=== PATIENT | male | born 1950 | race Caucasian/White ===

== ENCOUNTER → 2021-02-24 | Outpatient (CLI) | payer MEDICARE ==
--- NOTE | 2021-02-24 11:41 | CT ---
EXAMINATION TYPE: CT sinus wo con DATE OF EXAM: 02/24/2021 COMPARISON: NONE HISTORY: Sinusitis per order. Congestion and facial pain. CT DLP: 649.20 mGycm. Automated Exposure Control for Dose Reduction was Utilized. TECHNIQUE: CT scan of the sinuses is performed without contrast, axial images are obtained, coronal r eformatted images are also reviewed. FINDINGS: Mild mucosal thickening inferiorly in the bilateral maxillary sinuses. Additional 2.0 cm mu cous retention cyst or polyp in the anterior inferior right maxillary sinus axial image 8. Remainder of the paranasal sinuses are clear without abnormal opacification The ostiomeatal complex is patent b ilaterally on the coronal images. There is S-shaped nasal septal deviation axial image 20 and coronal image 29 noted Visualized portion of mastoid air cells show no abnormal opacification. The globes are intact bilate rally. Visualized portion of brain parenchyma shows mild to moderate diffuse cerebral atrophy with p rominent CSF greatest over the bilateral frontal lobes suspicious for chronic subdural hygromas or as ymmetric increased bilateral frontal lobe atrophy. Correlate clinically and with outside CT brain ada dy if available. IMPRESSION: Chronic maxillary sinus disease. No acute sinusitis.
== END | disposition home or self-care (01) ==
LOC: RADCTMAIN 11:08
PROVIDERS: ATTEND Internal Medicine
DX: J32.0 Chronic maxillary sinusitis (principal)
CPT/HCPCS: 70486

== ENCOUNTER → 2021-03-17 | Outpatient (CLI) | payer MEDICARE ==
--- NOTE | 2021-03-17 12:46 | US ---
EXAMINATION TYPE: US kidneys/renal and bladder DATE OF EXAM: 03/17/2021 COMPARISON: NONE CLINICAL HISTORY: CKD N18.9. EXAM MEASUREMENTS: Right Kidney: 11.0x5.9x4.7 cm Left Kidney: 10.2x5.7x4.9 cm Right Kidney: Small inf cyst, 0.5x0.3x0.4cm Left Kidney: Inf lobulated cyst 2.7x3.5x2.2cm Bladder: wnl Bilateral Jets seen: Yes IMPRESSION: 1. Small bilateral renal cysts
== END | disposition home or self-care (01) ==
LOC: RADUSWWP 11:58
PROVIDERS: ATTEND Internal Medicine
DX: N28.1 Cyst of kidney, acquired (principal)
CPT/HCPCS: 76770

== ENCOUNTER 2022-06-24 10:17 | Day surgery (SDC) | payer MEDICARE ==
[2022-06-22 11:57] VITALS: BMI 30.9
[~2022-06-24 10:17] MED LIST: LACTATED RINGERS 1,000 ML IV SCH
[2022-06-24 11:34] VITALS: TEMP 97
[2022-06-24] MEDS ORDERED: LIDOCAINE 2% INJ 20 MG/ML (2 ML VIAL) ONE (12:37)
[2022-06-24] MEDS ORDERED: PROPOFOL 10 MG/ML 20 ML VIAL IV ONE (12:37)
--- NOTE | 2022-06-24 12:47 | P.PCN ---
Date of Procedure: 06/24/22 Procedure(s) Performed: BRIEF HISTORY: Patient is a 72-year-old, pleasant, white male scheduled for an upper endoscopy as a part of evaluation of intermittent dysphagia to solids for the last 6 months duration.. PROCEDURE PERFORMED: Esophagogastroduodenoscopy with dilation. PREOPERATIVE DIAGNOSIS: Intermittent dysphagia to solids of 6 months duration. IV sedation per anesthesia. PROCEDURE: After informed consent was obtained, the patient was brought into the endoscopy unit. IV sedation was administered by Anesthesia under continuous monitoring. Initially the Olympus GIF-140 video endoscope was inserted into the mouth. Esophagus intubated without any difficulty. It was gradually advanced into the stomach and duodenum and carefully examined. The bulb and the second part of the duodenum appeared normal. The scope at this time was withdrawn to the stomach, adequately insufflated with air, and upon careful examination, mucosa of the antrum, body, cardia and the fundus appeared normal. The scope was then withdrawn into the esophagus. Small hiatal hernia noted. The GE junction was located at 39 cm from the incisors. The widely patent distal esophageal Schatzki's ring identified that was dilated using 15-18 mm TTS balloon in a sequential fashion for 60 seconds. The rest of the esophagus appeared normal. There were no erosions or ulcerations seen and the patient tolerated the procedure well. IMPRESSION: 1. Widely patent distal esophageal Schatzki's ring status post balloon dilation using 15-18 mm TTS balloon . 2.. Small hiatal hernia RECOMMENDATIONS: The findings of this examination were discussed with the patient as well as his family. He was advised to follow up in office as needed.
[2022-06-24 13:16] VITALS: BP 162/80; PULSE 75; RESP 16
== END 2022-06-24 13:44 | disposition home or self-care (01) ==
LOC: ORWHC2ENDO 10:17
PROVIDERS: ATTEND Internal Medicine Gastroenterology
DX: K22.2 Esophageal obstruction (principal); K44.9 Diaphragmatic hernia without obstruction or gangrene; E78.5 Hyperlipidemia, unspecified; J45.909 Unspecified asthma, uncomplicated; N28.9 Disorder of kidney and ureter, unspecified; N40.0 Benign prostatic hyperplasia without lower urinary tract symptoms; Z79.02 Long term (current) use of antithrombotics/antiplatelets; Z79.83 Long term (current) use of bisphosphonates; Z79.899 Other long term (current) drug therapy; Z88.1 Allergy status to other antibiotic agents
CPT/HCPCS: 43249; J2704; J2001; C1726

== ENCOUNTER 2022-09-01 13:41 | Emergency (ER) | payer MEDICARE ==
[2022-09-01 13:46] VITALS: RESP 16
[2022-09-01 15:08] VITALS: BP 191/84; PULSE 56; TEMP 97.8
[2022-09-01] MEDS ORDERED: KETOROLAC 15 MG/ML 1 ML VIAL IM STA (15:24)
[2022-09-01] MEDS ORDERED: LIDOCAINE 5% PATCH TOPICAL SCH (15:30)
--- NOTE | 2022-09-01 16:05 | XR ---
EXAMINATION TYPE: XR pelvis AP view DATE OF EXAM: 09/01/2022 4:00 PM INDICATION: Patient age:Male; 72 years old; Reason for study: L low back pain; PHH. COMPARISON: None TECHNIQUE: The pelvis was examined in a single projection. FINDINGS: There is no evidence of fracture or dislocation. There is no soft tissue abnormality. No a bnormal calcifications are present. Mild osteoarthritic changes of both hips with acetabular sclerosi s and marginal spurring with medial joint space narrowing. Multilevel degenerative changes of the low er spine. IMPRESSION: 1. No acute osseous pathology. 2. Mild osteoarthritic changes of both hips.
--- NOTE | 2022-09-01 16:10 | ED ---
General Adult HPI - General Chief complaint: Back Pain/Injury Stated complaint: back pain Time Seen by Provider: 09/01/22 15:17 Source: patient, RN notes reviewed Mode of arrival: ambulatory Limitations: no limitations - History of Present Illness Initial comments: 72-year-old male with no significant past medical history who presents the emergency department with a chief complaint of acute low back pain. Patient reports acute low back pain that started suddenly 4 days ago when he was getting up from sitting in a chair. He denies any recent falls trauma, injury. He has taken anything for his pain. He denies any fever, chills, flank pain, dysuria, hematuria, saddle paresthesias, loss of bowel or bladder function. He has never had this before. - Related Data Home Medications Medication Instructions Recorded Confirmed Tamsulosin [Flomax] 0.4 mg PO HS 06/22/22 09/01/22 Rosuvastatin Calcium 5 mg PO HS 09/01/22 09/01/22 carvediloL [Coreg] 3.125 mg PO BID 09/01/22 09/01/22 Previous Rx's Medication Instructions Recorded Lidocaine 5% Patch [Lidoderm] 1 patch TOPICAL DAILY #7 patch 09/01/22 Allergies Allergy/AdvReac Type Severity Reaction Status Date / Time erythromycin base AdvReac Nausea Verified 09/01/22 16:22 Review of Systems ROS Statement: Those systems with pertinent positive or pertinent negative responses have been documented in the HPI. ROS Other: All systems not noted in ROS Statement are negative. Past Medical History Past Medical History: Asthma, Cancer, Hyperlipidemia, Hypertension, Renal D isease, Skin Disorder Additional Past Medical History / Comment(s): enlarged prostate, chronic congestion and sinus infections , chronic kidney disease, choking episode in May 2022 reports not being able to breathe at times when eating, skin cancer, diverticulitis, jaw injury as child resulted in missing teeth and jaw malaligned History of Any Multi-Drug Resistant Organisms: MRSA Date of last positivie culture/infection: 03/11/20 MDRO Source:: Neck Additional Past Surgical History / Comment(s): skin cancer removal right ear and left forehead, oral surgery, colonscopy Past Psychological History: No Psychological Hx Reported Smoking Status: Never smoker - Past Family History Mother Family Medical History: Cancer Additional Family Medical History / Comment(s): unknown type Father Family Medical History: Cancer Additional Family Medical History / Comment(s): unknown type Sister(s) Family Medical History: Cancer Additional Family Medical History / Comment(s): skin General Exam Limitations: no limitations General appearance: alert, in no apparent distress Head exam: Present: atraumatic, normocephalic, normal inspection Eye exam: Present: normal appearance, PERRL, EOMI. Absent: scleral icterus, conjunctival injection, periorbital swelling ENT exam: Present: normal exam, mucous membranes moist Neck exam: Present: normal inspection. Absent: tenderness, meningismus, lymphadenopathy Respiratory exam: Present: normal lung sounds bilaterally. Absent: respiratory distress, wheezes, rales, rhonchi, stridor Cardiovascular Exam: Present: regular rate, normal rhythm, normal heart sounds. Absent: systolic murmur, diastolic murmur, rubs, gallop, clicks GI/Abdominal exam: Present: soft, normal bowel sounds. Absent: distended, tenderness, guarding, rebound, rigid Extremities exam: Present: normal inspection, full ROM, normal capillary refill. Absent: tenderness, pedal edema, joint swelling, calf tenderness Back exam: Present: normal inspection Neurological exam: Present: alert, oriented X3, CN II-XII intact Psychiatric exam: Present: normal affect, normal mood Skin exam: Present: warm, dry, intact, normal color. Absent: rash Course Vital Signs 09/01/22 09/01/22 13:43 15:05 Temperature 98.2 F 97.8 F Pulse Rate 60 56 L Respiratory 16 Rate Blood Pressure 193/88 191/84 O2 Sat by Pulse 96 94 L Oximetry Medical Decision Making - Medical Decision Making Was pt. sent in by a medical professional or institution (, PA, EMBEDDED PROCESSOR, urgent care, hospital, or senior living...) When possible be specific @ -[No] Did you speak to anyone other than the patient for history (EMS, parent, family, police, friend...)? What history was obtained from this source @ -[No] Did you review nursing and triage notes (agree or disagree)? Why? @ -[I reviewed and agree with nursing and triage notes] Were old charts reviewed (outside hosp., previous admission, EMS record, old EKG, old radiological studies, urgent care reports/EKG's, senior living records)? Report findings @ -[No old charts were reviewed] Differential Diagnosis (chest pain, altered mental status, abdominal pain women, abdominal pain men, vaginal bleeding, weakness, fever, dyspnea, syncope, headache, dizziness, GI bleed, back pain, seizure, CVA, palpatations, mental health, musculoskeletal)? @ -[not applicable] EKG interpreted by me (3pts min.). @ -[As above] X-rays interpreted by me (1pt min.). @ X-ray pelvis is negative for any evidence of acute fracture or dislocation. There are mild degenerative changes CT interpreted by me (1pt min.). @ -[None done] U/S interpreted by me (1pt. min.). @ -[None done] What testing was considered but not performed or refused? (CT, X-rays, U/S, labs)? Why? @ -[None] What meds were considered but not given or refused? Why? @ -[None] Did you discuss the management of the patient with other professionals (professionals i.e. , PA, EMBEDDED PROCESSOR, lab, RT, psych nurse, social media campaign manager, marine engine mechanic, teacher, light armored vehicle officer, director of casework services)? Give summary @ -[No] Was smoking cessation discussed for >3mins.? @ -[No] Was critical care preformed (if so, how long)? @ -[No] Were there social determinants of health that impacted care today? How? (Homelessness, low income, unemployed, alcoholism, drug addiction, transportation, low edu. Level, literacy, decrease access to med. care, fdc, rehab)? @ -[No] Was there de-escalation of care discussed even if they declined (Discuss DNR or withdrawal of care, Hospice)? DNR status @ -[No] What co-morbidities impacted this encounter? (DM, HTN, Smoking, COPD, CAD, Cancer, CVA, ARF, Chemo, Hep., AIDS, mental health diagnosis, sleep apnea, morbid obesity)? @ -[None] Was patient admitted / discharged? Hospital course, mention meds given and route, prescriptions, significant lab abnormalities, going to OR and other pertinent info. @ -Discharged. This is a 72-year-old male who presents the emergency department with back pain. Patient had a thorough history and physical exam performed while in the ED. Physical exam is essentially unremarkable. Heart rate regular rate and rhythm, lungs clear to auscultation bilaterally abdomen is soft and non-tender. x-ray negative. Patient given Toradol and lidoderm patch with symptomatic relief while in the ED. I discussed the results in detail with the patient's mother who verbalized understanding and all questions and concerns were addressed. Patient was discharged in stable condition with recommended close follow-up with PCP in 1-2 days. Return precautions were discussed at length. Case discussed with NICOLÁS Jeter who agrees with plan of care Undiagnosed new problem with uncertain prognosis? @ -[No] Drug Therapy requiring intensive monitoring for toxicity (Heparin, Nitro, Insulin, Cardizem)? @ -[No] Were any procedures done? @ -[No] Diagnosis/symptom? @ -mechanical back pain Acute, or Chronic, or Acute on Chronic? @ -acute Uncomplicated (without systemic symptoms) or Complicated (systemic symptoms)? @ -uncomplicated Side effects of treatment? @ -[No] Exacerbation, Progression, or Severe Exacerbation? @ -[No] Poses a threat to life or bodily function? How? (Chest pain, [place], [place], pneumonia, PE, COPD, DKA, ARF, appy, cholecystitis, CVA, Diverticulitis, Homicidal, Suicidal, threat to staff... and all critical care pts) @ -low likelihood Disposition Clinical Impression: Mechanical back pain Disposition: HOME SELF-CARE Condition: Stable Instructions (If sedation given, give patient instructions): Acute Low Back Pain (ED) Additional Instructions: Please return to the nearest emergency department if symptoms worsen or persist. Prescriptions: Lidocaine 5% Patch [Lidoderm] 1 patch TOPICAL DAILY #7 patch Is patient prescribed a controlled substance at d/c from ED?: No Referrals: Mirta Horton MD [Primary Care Provider] - 1-2 days Bay Deshpande MD [Medical Doctor] - 1-2 days Time of Disposition: 16:09
[2022-09-01] MEDS ORDERED: IBUPROFEN 600 MG STARTER PACK 4 TAB BTL PO STA (16:23)
== END 2022-09-01 16:35 | disposition home or self-care (01) ==
LOC: EC 13:41
DX: M54.50 Low back pain, unspecified (principal); I12.9 Hypertensive chronic kidney disease with stage 1 through stage 4 chronic kidney disease, or unspecified chronic kidney disease; N18.9 Chronic kidney disease, unspecified; J45.909 Unspecified asthma, uncomplicated; E78.5 Hyperlipidemia, unspecified; Z79.899 Other long term (current) drug therapy; Z88.1 Allergy status to other antibiotic agents
CPT/HCPCS: 72170; 99283; 96372; J1885

== ENCOUNTER → 2024-04-25 | Outpatient (CLI) | payer MEDICARE ==
--- NOTE | 2024-04-25 11:56 | XR ---
EXAMINATION TYPE: XR lumbosacral spine min 4V DATE OF EXAM: 04/25/2024 10:56 AM COMPARISON: 04/25/2024 CLINICAL INDICATION: Male, 74 years old with history of M54.50 LOW BACK PAIN, UNSPECIFIED; [facility] TECHNIQUE: XR lumbosacral spine min 4V - Frontal, lateral , bilateral oblique and coned in L5-S1 late ral views of the spine. FINDINGS: No evidence of any acute osseous pathology. No evidence of loss of vertebral body height i s seen. There is normal alignment of the lumbar vertebral bodies. Mild scattered disc space narrowing . Multilevel marginal osteophyte formation throughout the visualized spine. There is facet joint arth ropathy throughout the spine. Scattered at least mild neural foraminal stenosis. IMPRESSION: 1. No acute fracture. 2. Mild to moderate multilevel disc degeneration. [facility], , 04/25/2024 11:54 AM
== END | disposition home or self-care (01) ==
LOC: RADXRMAIN 10:23
PROVIDERS: ATTEND Internal Medicine
DX: M51.360 Other intervertebral disc degeneration, lumbar region with discogenic back pain only (principal); M47.896 Other spondylosis, lumbar region; M99.73 Connective tissue and disc stenosis of intervertebral foramina of lumbar region
CPT/HCPCS: 72110

== ENCOUNTER → 2024-08-19 | Outpatient (CLI) | payer MEDICARE | END | disposition home or self-care (01) | LOC: LABWHC1 08:35 | PROVIDERS: ATTEND Urology | DX: R97.20 Elevated prostate specific antigen [PSA] (principal) | CPT/HCPCS: 36415; 84153 ==

== ENCOUNTER 2025-01-10 14:26 | Day surgery (SDC) | payer MEDICARE ==
[2025-01-09 11:30] VITALS: BMI 32.4
[2025-01-10 15:29] VITALS: TEMP 97
[2025-01-10] MEDS: LACTATED RINGERS 1,000 ML IV SCH (15:29)
[2025-01-10] MEDS: IV FLUID CONTINUATION 1,000 ML IV ONE (15:30)
[2025-01-10] MEDS ORDERED: GLYCOPYRROLATE 0.2 MG/ML 2 ML VIAL ONE (15:55)
[2025-01-10] MEDS ORDERED: LIDOCAINE 1% INJ 10MG/ML (20 ML MDV) ONE (15:55)
[2025-01-10] MEDS ORDERED: PROPOFOL 10 MG/ML 20 ML VIAL IV ONE (15:55)
--- NOTE | 2025-01-10 16:13 | P.PCN ---
Date of Procedure: 01/10/25 Procedure(s) Performed: Brief history: Patient is a pleasant 74-year-old white male scheduled for an elective upper endoscopy as well as colonoscopy as a part of evaluation of intermittent dysphagia to solids and screening for colon cancer Procedure performed: Esophagogastroduodenoscopy with dilation Colonoscopy Preoperative diagnosis: Intermittent dysphagia to solids Screening for colon cancer Anesthesia: MAC Procedure: After informed consent was obtained from the patient was brought into the e ndoscopy unit and IV sedation was administered by anesthesia under continuous monitoring. Initially upper endoscopy was done. The Olympus GF 160 video endoscope was inserted inserted into the mouth and esophagus intubated without any difficulty and was gradually advanced into the stomach and duodenum and carefully examined. The bulb and second part of the duodenum appeared normal. The scope was then withdrawn into the stomach adequately insufflated with air and upon careful examination the antrum and body, cardia and fundus appeared normal. The scope was then withdrawn into the esophagus. Small hiatal hernia noted. The GE junction was located at 40 cm to the incisors. There was a distal esophageal Schatzki's ring noted which was dilated using 40 mm TTS balloon for 30 seconds. It appeared regular with no erythema erosions or ulcerations. Rest of the esophagus appeared normal. Patient tolerated the procedure well. At this time the patient continued to remain sedation. Initial digital rectal examination was normal. Olympus CF 160 video colonoscope was then inserted into the rectum and gradually advanced to the cecum without any difficulty. Careful examination was performed as the scope was gradually being withdrawn. The prep was excellent. The cecum, ascending colon, transverse colon, descending colon, sigmoid colon and rectum appeared normal. Scattered sigmoid diverticulosis. Retroflexion was performed in the rectum and no lesions were noted. Patient tolerated the procedure well. Impression: 1. Upper endoscopy revealed distal esophageal Schatzki's ring status post balloon dilation to 20 mm TTS balloon and small hiatal hernia 2. Colonoscopy with scattered sigmoid diverticulosis but no evidence of colorectal neoplasia Recommendations: Findings of this examination were discussed with the patient as well as his family. He was advised to be in for liquids for 2 hours. Recommended repeat screening colonoscopy in 10 years.
[2025-01-10 16:21] VITALS: RESP 16
[2025-01-10 16:42] VITALS: BP 144/91; PULSE 78
== END 2025-01-10 17:23 | disposition home or self-care (01) ==
LOC: ORWHC2ENDO 14:26
PROVIDERS: ATTEND Internal Medicine Gastroenterology
DX: Z12.11 Encounter for screening for malignant neoplasm of colon (principal); K22.2 Esophageal obstruction; K57.30 Diverticulosis of large intestine without perforation or abscess without bleeding; K44.9 Diaphragmatic hernia without obstruction or gangrene; I10 Essential (primary) hypertension; E78.5 Hyperlipidemia, unspecified; J45.909 Unspecified asthma, uncomplicated; N40.0 Benign prostatic hyperplasia without lower urinary tract symptoms; Z79.899 Other long term (current) drug therapy; Z88.1 Allergy status to other antibiotic agents
CPT/HCPCS: 43249; J2003; J2704; J1596; C1726; G0121